=== PATIENT | female | born 2000 | race Caucasian/White ===

== ENCOUNTER 2022-12-28 22:50 | Emergency (ER) | payer SELFPAY ==
[2022-12-28 22:55] VITALS: BP 182/113; PULSE 97; RESP 16; TEMP 36.9; O2SAT 100
--- NOTE | 2022-12-28 23:31 | PC.NURSE ---
patient stated wait is too long and left from waiting room
== END 2022-12-29 00:13 | disposition left against medical advice (07) ==
PROVIDERS: PCP Pediatrics
DX: J02.9 Acute pharyngitis, unspecified (principal)
CPT/HCPCS: 99199

== ENCOUNTER 2022-12-30 17:23 | Emergency (ER) | payer OTHER, SELFPAY ==
[2022-12-30] VITALS (18 sets, daily range): BP systolic 124–176; BP diastolic 86–113; PULSE 63–105; RESP 13–18; TEMP 36.9; O2SAT 93–100
--- NOTE | ~2022-12-30 | CT_ITS ---
EXAMINATION: CT abdomen pelvis w con DATE: 12/30/2022 19:52 INDICATION: abdominal pain TECHNIQUE: Computed tomography (CT) of the abdomen and pelvis was performed with 100 mL Omnipaque-350 intravenous contrast. Automated exposure control and iterative reconstruction technique were employe d. The dose-length product was 1648.46 mGy-cm. COMPARISON: 09/07/2008. FINDINGS: Lower thorax: Unremarkable Liver: Normal. Biliary/Gallbladder: Gallbladder is absent. No bile duct dilation. Pancreas: No mass or duct dilation. Spleen: Normal. Adrenals:No mass. Kidneys: No mass, stone, or hydronephrosis. GI tract: No small or large bowel dilation. Normal appendix. Mild diverticulosis without diverticulit is. Mesentery/Peritoneum: No ascites, mass, or free air. Retroperitoneum: No mass. Pelvis: Pelvic organs are within normal limits. Soft Tissues: Soft tissues and body wall unremarkable. Bones: No acute osseous finding. IMPRESSION: No acute abdominopelvic process detected. Reviewed, dictated and finalized at location K.
--- NOTE | 2022-12-30 17:50 | ED.GENADULT ---
HPI - General Adult General Chief complaint: Abdominal Pain Stated complaint: throat, pain. burning. Time Seen by Provider: 12/30/22 17:36 History of Present Illness HPI narrative: Patient 22-year-old female who presents the emergency department with chief complaint of abdominal pain. Patient reports that she started having a sore throat several days ago and reports that it was painful whenever she would swallow patient reports this then subsequently developed blisters in her mouth and then started having pain in the epigastric region. Patient reports that it is a burning-like sensation similar to whenever she had pancreatitis in the past. 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 Patient reports her last GI doctor was at [facility] but she has not seen them in a couple years. Patient denies heavy alcohol use Related Data Allergies Allergy/AdvReac Type Severity Reaction Status Date / Time erythromycin base Allergy Mild Unknown Verified 12/28/22 22:51 Penicillins Allergy Mild Unknown Verified 12/28/22 22:51 alcohol Allergy Unknown Verified 12/28/22 22:51 methyl salicylate Allergy Unknown Verified 12/28/22 22:51 minocycline Allergy Unknown Verified 12/28/22 22:51 GUM MASTIC Allergy Unknown Uncoded 12/28/22 22:51 STORAX Allergy Unknown Uncoded 12/28/22 22:51 Review of Systems Review of Systems: A 10 system review of systems was completed on the patient and is negative except for what is stated in the HPI. Nursing and ancillary documentation was reviewed. Exam Narrative: GENERAL: Well-appearing, well-nourished, and in no acute distress. HEAD: Normocephalic, atraumatic. EYES: PERRLA and EOMI. ENT: Nares clear, no rhinorrhea or epistaxis. Mucous membranes moist. NECK: Supple. CHEST: Clear to auscultation. No respiratory distress. HEART: Regular rate and rhythm. No murmur heard. Normal peripheral pulses. ABDOMEN: Soft, tenderness to palpation in the epigastric region, nondistended, normal active bowel sounds. EXTREMITIES: Normal range of motion. No edema. SKIN: Warm, dry, no rash. NEURO: No focal deficits. Alert and oriented x3. PSYCH: Normal mood and affect. Course Vital Signs Vital signs: Vital Signs Temperature 36.9 C 12/30/22 17:25 Pulse Rate 90 12/30/22 17:25 Respiratory Rate 16 12/30/22 17:25 Blood Pressure 176/113 H 12/30/22 17:25 Pulse Oximetry 99 12/30/22 17:25 Oxygen Delivery Room Air 12/30/22 17:25 Temperature 36.9 C 12/30/22 17:25 Pulse Rate 63 12/30/22 20:23 Respiratory Rate 18 12/30/22 20:23 Blood Pressure 134/86 12/30/22 20:23 Pulse Oximetry 100 12/30/22 20:23 Oxygen Delivery Room Air 12/30/22 17:25 Medical Decision Making MDM Narrative Medical decision making narrative: Differential diagnosis includes strep pharyngitis, mono, gastritis, viral syndrome Laboratory studies were obtained on the patient which showed a normal white blood cell count hemoglobin was 13.1 electrolytes are within normal limits patient AST and ALT are within normal limits urinalysis showed no evidence of UTI Strep was negative mono is negative CT scan of the abdomen pelvis showed no acute abnormality Vital Signs Vital Signs: Vital Signs Temperature 36.9 C 12/30/22 17:25 Pulse Rate 90 12/30/22 17:25 Respiratory Rate 16 12/30/22 17:25 Blood Pressure 176/113 H 12/30/22 17:25 Pulse Oximetry 99 12/30/22 17:25 Oxygen Delivery Room Air 12/30/22 17:25 Temperature 36.9 C 12/30/22 17:25 Pulse Rate 63 12/30/22 20:23 Respiratory Rate 18 12/30/22 20:23 Blood Pressure 134/86 12/30/22 20:23 Pulse Oximetry 100 12/30/22 20:23 Oxygen Delivery Room Air 12/30/22 17:25 Lab Data 12/30/22 18:04 12/30/22 19:11 Labs: Lab Results 12/30/2212/30
[2022-12-30] MEDS: SODIUM CHLORIDE 0.9% IV 1,000 ML 999 ML IV CONT (18:05)
[2022-12-30] MEDS: ONDANSETRON INJ 4 MG/2 ML VIAL IV PUSH (18:07)
[2022-12-30] MEDS: PANTOPRAZOLE SODIUM IV 40 MG VIAL IV PUSH (18:11)
[2022-12-30 18:15] LABS: Basophils Percent Auto 0.2 % (0.2-1.2); Eosinophils Absolute Auto 0.1 K/mm3 (0-0.3); Eosinophils Percent Auto 1.1 % (0-4.4); Hemoglobin 13.1 g/dL (12.0-15.0); Immature Granulocyte Absolute 0.02 K/mm3 (0.00-0.031); Immature Granulocyte Percent A 0.2 % (0-0.5); Lymphocytes Absolute Auto 2.66 K/mm3 (0.9-3.2); Lymphocytes Percent Auto 31.5 % (18.3-44.2); Mean Corpuscular Hemoglobin 25.5 pg (26-34); Mean Corpuscular Volume 79.9 fl (80-100); Mean Platelet Volume 11.9 fl (7.4-10.4); Monocytes Absolute Auto 0.5 K/mm3 (0.1-0.6); Monocytes Percent Auto 6.3 % (2.6-8.5); Neutrophils Absolute Auto 5.1 K/mm3 (1.3-6.7); Neutrophils Percent Auto 60.7 % (45.5-73.1); Platelet Count Result 280 k/mm3 (150-375); Red Blood Count 5.13 M/mm3 (4.2-5.4); Red Cell Distribution Width 14.2 % (11.5-14.5); White Blood Count 8.4 K/mm3 (4.5-10.0)
[2022-12-30 18:22] LABS: Appearance Urine Cloudy (Clear); Bacteria Urine None Seen /hpf; Bilirubin Urine Negative (Negative); Blood Urine Negative (Negative); Color Urine Yellow (Yellow); Glucose Urine UA Negative (Negative); Ketones Urine Trace mg/dL (Negative); Leukocyte Esterase Ur Negative LEU/UL (Negative); Nitrate Urine Negative (Negative); Non Pathogenic Casts 0-2; Protein Urine Negative (Negative); RBC Urine 0-2 /hpf (0-2); Squamous Epithelial Cell Urine Few /hpf (Few); WBC Urine 0-5 /hpf
[2022-12-30 18:23] LABS: Add Urine Microscopic? YES; Specific Grav Ur 1.036 (1.001-1.035)
[2022-12-30 18:40] LABS: Strep Group A RT-PCR NOT DETECTED (Negative)
[2022-12-30 18:52] LABS: Monoscreen Negative (Negative); Negative Monotest Control Negative (Negative); Positive Monotest Control Positive (Positive)
--- NOTE | 2022-12-30 19:25 | PC.NURSE ---
Report received from CARLY Mendes. Assumed care of patient at this time.
[2022-12-30 19:30] LABS: Alanine Aminotransferase 20 U/L (6-35); Albumin Level 4.2 g/dL (3.5-5.1); Alkaline Phosphatase 54 U/L (38-126); Anion Gap 7 mmol/L (8-16); Aspartate Amino Transferase 22 U/L (14-36); Bilirubin,Total 0.3 mg/dL (0.2-1.3); Blood Urea Nitrogen 14 mg/dL (7-17); Calcium 8.8 mg/dL (8.4-10.2); Carbon Dioxide 28 mmol/L (22-30); Chloride 105 mmol/L (98-107); Estimated CRCL calculation 162 ml/min; Estimated Glomerular Filt Rate > 60; Glucose 84 mg/dL (65-110); Lipase 67 U/L (23-300); Potassium 3.9 mmol/L (3.4-5.0); Sodium 140 mmol/L (137-145)
--- NOTE | 2022-12-30 19:53 | PC.NURSE ---
Patient in CT at this time.
== END 2022-12-30 21:29 | disposition home or self-care (01) ==
PROVIDERS: Emergency Medicine; Emergency Provider Emergency Medicine
DX: B34.9 Viral infection, unspecified (principal); J02.9 Acute pharyngitis, unspecified; K29.70 Gastritis, unspecified, without bleeding
CPT/HCPCS: 36415; 74177; 80053; 81001; 81025; 83690; 85025; 86308; 87651; 96361; 96374; 96375; 99284; C9113; J2405; J7030; Q9967